=== PATIENT | female | born 1975 | race Caucasian/White ===

== ENCOUNTER 2023-02-15 11:42 | Emergency (ER) | payer OTHER ==
[~2023-02-15] VITALS: Ht 170.2 cm; Wt 72.0 kg
[2023-02-15 11:56] VITALS: BP 154/92
[2023-02-15] MEDS ORDERED: ibuprofen 200mg tablet PO ONE (13:50)
== END 2023-02-15 16:15 | disposition home or self-care (01) ==
LOC: ER 11:42
DX: S62.101A Fracture of unspecified carpal bone, right wrist, initial encounter for closed fracture (principal); M25.561 Pain in right knee; Z88.0 Allergy status to penicillin; W18.39XA Other fall on same level, initial encounter; Y93.89 Activity, other specified; Y92.89 Other specified places as the place of occurrence of the external cause; Y99.8 Other external cause status
CPT/HCPCS: 29125; 73110; 73564; 99284

== ENCOUNTER 2024-03-08 12:19 | Emergency (ER) | payer MEDICARE, MEDICAID ==
[~2024-03-08] VITALS: Ht 167.6 cm; Wt 91.5 kg
[2024-03-08 12:37] VITALS: BP 135/80; PULSE 85; RESP 18; O2SAT 97
[2024-03-08] MEDS ORDERED: METH-798 PO (13:19)
[2024-03-08 13:28] VITALS: TEMP 97.8
== END 2024-03-08 13:30 | disposition home or self-care (01) ==
LOC: ER 12:20
DX: M25.532 Pain in left wrist (principal); M54.2 Cervicalgia; Z88.0 Allergy status to penicillin; V49.88XA Car occupant (driver) (passenger) injured in other specified transport accidents, initial encounter; Y93.89 Activity, other specified; Y92.89 Other specified places as the place of occurrence of the external cause; Y99.8 Other external cause status
CPT/HCPCS: 99283

== ENCOUNTER 2025-08-13 14:54 | Emergency (ER) | payer MEDICARE, MEDICAID ==
[~2025-08-13] VITALS: Ht 182.9 cm; Wt 58.9 kg
[~2025-08-13 14:54] MED LIST: METH-798 PO
[2025-08-13 15:07] VITALS: BP 153/84; PULSE 90; RESP 18; O2SAT 99
--- NOTE | 2025-08-13 16:01 | RADIOLOGY REPORT ---
INDICATION: fall TECHNIQUE: 7 views of the lumbar spine in sacrum/coccyx were obtained. COMPARISON: None Findings/impression: No acute subluxation. Age indeterminate ; possibly subacute to chronic moderate compression fracture of the superior endplate of the T12 vertebral body.
--- NOTE | 2025-08-13 17:17 | Physician Documentation ---
History of Present Illness ~ Chief Complaint: Mechanical Fall Stated Complaint: FALL Time Seen by MD: 17:02 HPI This is a 50-year-old female who presents with one-week of buttock and low back pain following a mechanical ground level trip and fall striking her buttock. Patient reports no new weakness or numbness in legs, no loss of bowel or bladder control. Patient reports no other acute symptoms or concerns. Tetanus within 5 Years?: No Medication Reconciliation Allergies: Coded Allergies: Penicillins (Verified Allergy, Unknown, 08/13/25) Scheduled Methocarbamol (Methocarbamol), 1 TAB PO Q8H Review of Systems ROS As stated above in the HPI, otherwise all systems are reviewed and negative. Physical Exam Vital Signs: Source: Temporal, Heart Rate: 90, Respiratory Rate: 18, BP: 153/84, Pulse Oximetry: 99, Weight: 58.900 Oxygen Flow Rate: 0 Physical Exam VITALS: Reviewed and as above. GENERAL: Alert, nontoxic appearing, no apparent distress. RESPIRATORY: No increased work of breathing, no respiratory distress, speaking in full clear sentences BACK: No central spinal tenderness Progress Results/Orders Results/Orders Orders - SANDRA MONTALVOP Sacrum & Coccyx (08/13/25 15:10) Lumbar Spine Limited (08/13/25 15:10) Completed Orders - SANDRA MONTALVO Sacrum & Coccyx (08/13/25 15:10) Lumbar Spine Limited (08/13/25 15:10) Vital Signs 08/13/25 08/13/25 15:07 17:29 Pulse 90 Resp 18 B/P (MAP) 153/84 Pulse Ox 99 O2 Flow Rate 0 EKG/XRAY/CT/US/VASC/MRI Bone/Soft Tissue X-Ray (Spine) #1: Additional Comment Exam: SACRUM & COCCYX INDICATION: fall TECHNIQUE: 7 views of the lumbar spine in sacrum/coccyx were obtained. COMPARISON: None Findings/impression: No acute subluxation. Age indeterminate ; possibly subacute to chronic moderate compression fracture of the superior endplate of the T12 vertebral body. Electronically Signed by:LEONILA WREN MD Date & Time: 08/13/25 7562 Dictated by: LEONILA WREN MD Dictation date and time: 08/13/251558 I have reviewed and agree with the radiology report. I have reviewed and interpreted the imaging as: No vertebral fracture Bone/Soft Tissue X-Ray (Spine) #2: Additional Comment Exam: LUMBAR SPINE LIMITED INDICATION: fall TECHNIQUE: 7 views of the lumbar spine in sacrum/coccyx were obtained. COMPARISON: None Findings/impression: No acute subluxation. Age indeterminate ; possibly subacute to chronic moderate compression fracture of the superior endplate of the T12 vertebral body. Electronically Signed by:LEONILA WREN MD Date & Time: 08/13/251558 Dictated by: LEONILA WREN MD Dictation date and time: 08/13/251558 I have reviewed and agree with the radiology report. I have reviewed and interpreted the imaging as: No vertebral fracture Medical Decision Making Additional information obtaine: N/A Findings This is a 50-year-old female presented with low back and buttock pain following the ground level slip and false striking her buttocks on the ground. Patient was otherwise well-appearing and it was reassuring patient reported no new weakness or numbness legs and no loss of bowel Imaging did demonstrate a age indeterminate T12 compression fracture though patient is reporting no pain in thoracic or upper lumbar spine therefore I do not suspect this to be acute. Patient is otherwise well-appearing imaging did not demonstrate evidence of fractures or dislocations an area of pain suspect soft tissue injury. Patient provided careful return to care precautions follow up instructions, and home care instructions which he verbalized understanding of. Differential Dx:Considerations: Include: Fracture(s), Spine injury, Abrasion(s), Contusion(s), Laceration(s) Departure Time of Disposition: 17:15 Disposition: 01 HOME / SELF CARE / HOMELESS Impression: Primary Impression: Sacral pain Condition: Improved Additional Instructions: The x-rays of your tailbone were reassuring. Continue to use [id number] pain medications as needed as directed by [id number] packaging. Please follow up with your primary care provider in the next few days. Please return to the emergency department for any new or worsening concerning symptoms including but not limited to new weakness or numbness in your legs or loss of bowel or bladder control. Referrals: NO PRIMARY CARE PROVIDER (PCP) Education Educated: Patient Educated regarding: diagnosis, treatment, prognosis, need for follow up Signature Scribe Signature: No scribe Attestation: The note accurately reflects work and decisions made by me.ZE Toney 08/13/25 20:02 SANDRA MONTALVO Aug 13, 2025 17:17
== END 2025-08-13 17:41 | disposition home or self-care (01) ==
LOC: ER 14:54
DX: M53.3 Sacrococcygeal disorders, not elsewhere classified (principal); M54.50 Low back pain, unspecified; Z88.0 Allergy status to penicillin; Z79.899 Other long term (current) drug therapy; W01.0XXA Fall on same level from slipping, tripping and stumbling without subsequent striking against object, initial encounter; Y93.89 Activity, other specified; Y92.89 Other specified places as the place of occurrence of the external cause; Y99.8 Other external cause status
CPT/HCPCS: 72100; 72220; 99284